=== PATIENT | male | born 1980 | race Caucasian/White ===

== ENCOUNTER 2022-10-10 10:33 | Emergency (ER) | payer BC, SELFPAY ==
[2022-10-10] MEDS ORDERED: Bacitracin 1 PK ONE (11:33)
== END 2022-10-10 11:40 | disposition home or self-care (01) ==
LOC: BURERS 10:33
DX: S61.511A Laceration without foreign body of right wrist, initial encounter (principal); W27.0XXA Contact with workbench tool, initial encounter
CPT/HCPCS: 12002